=== PATIENT | female | born 1955 | race Caucasian/White ===

== ENCOUNTER 2019-08-06 10:57 | Inpatient (IN) | payer MEDICAID ==
[~2019-08-06] VITALS: Ht 157.5 cm; Wt 83.9 kg
[2019-08-06] MEDS ORDERED: ACETAMINOPHEN 325MG TABLET ONE (11:30)
[2019-08-06] MEDS ORDERED: SODIUM CHLORIDE 0.9% 1000ML BAG (SEPSIS BOLUS) IV ONE (12:15)
[2019-08-06 12:39] LABS: CLARITY URINE CLOUDY (CLEAR); COLOR URINE DARK YELLOW (YELLOW); KETONES URINE NEGATIVE (NEGATIVE); LEUKOCYTE ESTERASE URINE 2+ (NEGATIVE); NITRITE URINE POSITIVE (NEGATIVE); OCCULT BLOOD URINE 2+ (NEGATIVE); PROTEIN URINE 1+ (NEGATIVE); SPECIFIC GRAVITY URINE 1.028 (1.005-1.030)
[2019-08-06 12:44] LABS: BASOPHILS % 0.6 % (0.0-2.0); EOSINOPHILS % 0.4 % (0.0-5.0); HEMATOCRIT. 35.5 % (36.0-48.0); HEMOGLOBIN. 12.1 g/dL (12.0-16.0); LYMPHOCYTES % 13.3 % (20.0-50.0); MEAN CORPUSCULAR HEMOGLOBIN 32.8 pg (28.0-32.0); MEAN CORPUSCULAR VOLUME 96.2 fL (81.0-99.0); MEAN PLATELET VOLUME 8.7 fl (7.4-10.4); MONOCYTES % 5.8 % (2.0-8.0); NEUTROPHILS % 79.9 % (40.0-76.0); PLATELET 252 x1000/uL (130-400); RED BLOOD CELL COUNT 3.69 mill/uL (4.2-5.4); RED CELL DISTRIBUTION WIDTH 13.5 % (11.6-14.6)
[2019-08-06] MEDS ORDERED: KETOROLAC 15MG/ML VIAL IV ONE (12:45)
[2019-08-06 12:52] LABS: PROTHROMBIN TIME 10.2 sec (9.6-11.0)
[2019-08-06 12:53] LABS: CHLORIDE 100 mEq/L (98-107)
[2019-08-06] MEDS ORDERED: CEFTRIAXONE 1 G PREMIX 50 ML IV NR (15:00)
[2019-08-06] MEDS ORDERED: CLONIDINE 0.1MG TABLET PO PRN (18:15)
[2019-08-06] MEDS ORDERED: ONDANSETRON HCL 4MG/2ML INJ IV PRN (18:15)
[2019-08-06] MEDS ORDERED: IPRATROPIUM/ALBUTEROL 0.5-3(2.5)MG/3ML NEB NEB PRN (18:15)
[2019-08-06] MEDS ORDERED: DOCUSATE SODIUM 100MG CAPSULE PO PRN (18:15)
[2019-08-06 22:00] VITALS: BP 116/63
[2019-08-06] MEDS ORDERED: ATOR-2 PO (23:17)
[2019-08-06] MEDS ORDERED: PIOG45TA5 PO (23:17)
[2019-08-06] MEDS ORDERED: METF-416 PO (23:17)
[2019-08-06] MEDS ORDERED: ASPI325T85 MT (23:17)
[2019-08-06] MEDS ORDERED: IBUP-2029 PO (23:17)
[2019-08-06] MEDS ORDERED: RANI150T7 PO (23:17)
[2019-08-06] MEDS: ENOXAPARIN 40MG/0.4ML SYR SUBCUT SCH (23:42)
[2019-08-07] VITALS: BP 100/50
[2019-08-07] MEDS ORDERED: DEXTROSE 50% WATER 50ML SYRINGE IV PRN
[2019-08-07 00:43] LABS: CREATINE KINASE 96 IU/L (26-192)
[2019-08-07 00:44] LABS: CREATINE KINASE MB FRACTION < 1.0 ng/mL (0.5-3.6)
[2019-08-07] MEDS: ACETAMINOPHEN 325MG TABLET PO PRN (00:47)
[2019-08-07 04:00] VITALS: BP 104/53
[2019-08-07] MEDS: BLOOD SUGAR DIAGNOSTIC STRIP TEST SCH ×4 (06:51→21:40)
[2019-08-07] MEDS: INSULIN LISPRO 100 UNITS/ML SUBCUT SCH ×4 (07:32→21:41)
[2019-08-07 07:46] LABS: BASOPHILS % 0.8 % (0.0-2.0); EOSINOPHILS % 2.9 % (0.0-5.0); HEMATOCRIT. 30.2 % (36.0-48.0); HEMOGLOBIN. 10.4 g/dL (12.0-16.0); LYMPHOCYTES % 21.6 % (20.0-50.0); MEAN CORPUSCULAR HEMOGLOBIN 33.3 pg (28.0-32.0); MEAN CORPUSCULAR VOLUME 96.5 fL (81.0-99.0); MEAN PLATELET VOLUME 9.3 fl (7.4-10.4); MONOCYTES % 6.6 % (2.0-8.0); NEUTROPHILS % 68.1 % (40.0-76.0); PLATELET 229 x1000/uL (130-400); RED BLOOD CELL COUNT 3.13 mill/uL (4.2-5.4); RED CELL DISTRIBUTION WIDTH 13.3 % (11.6-14.6)
[2019-08-07 07:55] LABS: CHLORIDE 109 mEq/L (98-107)
[2019-08-07 08:00] VITALS: BP 107/53
[2019-08-07 08:13] LABS: LDL CHOLESTEROL 88 mg/dL (5-100)
[2019-08-07 08:14] LABS: CREATINE KINASE 76 IU/L (26-192)
[2019-08-07 08:15] LABS: HDL CHOLESTEROL 45 mg/dL (40-59)
[2019-08-07 08:18] LABS: CREATINE KINASE MB FRACTION < 1.0 ng/mL (0.5-3.6)
[2019-08-07 12:00] VITALS: BP 109/53
[2019-08-07] MEDS: GABAPENTIN 100MG CAPSULE PO SCH ×2 (15:24→21:41)
[2019-08-07] MEDS: KETOROLAC 30MG/ML VIAL IV SCH ×2 (15:31→21:40)
[2019-08-07 16:00] VITALS: BP 125/57
[2019-08-07] MEDS ORDERED: CEFTRIAXONE 1 G PREMIX 50 ML IV SCH (16:00)
[2019-08-07] MEDS: CEFTRIAXONE 1 G PREMIX 50 ML IV SCH (17:00)
[2019-08-07 20:00] VITALS: BP 110/44
[2019-08-07] MEDS: FAMOTIDINE 20MG/2ML VIAL IV SCH (21:40)
[2019-08-07] MEDS: ENOXAPARIN 40MG/0.4ML SYR SUBCUT SCH (21:40)
[2019-08-08] VITALS: BP 127/65
[2019-08-08 04:00] VITALS: BP 120/54
[2019-08-08] MEDS: KETOROLAC 30MG/ML VIAL IV SCH ×3 (05:48→21:28)
[2019-08-08] MEDS: GABAPENTIN 100MG CAPSULE PO SCH ×3 (05:48→21:28)
[2019-08-08] MEDS: BLOOD SUGAR DIAGNOSTIC STRIP TEST SCH ×4 (06:24→21:28)
[2019-08-08 07:32] LABS: CHLORIDE 109 mEq/L (98-107)
[2019-08-08 07:53] LABS: BASOPHILS % 0.8 % (0.0-2.0); EOSINOPHILS % 3.2 % (0.0-5.0); HEMATOCRIT. 31.5 % (36.0-48.0); HEMOGLOBIN. 10.9 g/dL (12.0-16.0); MEAN CORPUSCULAR HEMOGLOBIN 33.4 pg (28.0-32.0); MEAN CORPUSCULAR VOLUME 96.3 fL (81.0-99.0); MEAN PLATELET VOLUME 9.2 fl (7.4-10.4); MONOCYTES % 5.5 % (2.0-8.0); NEUTROPHILS % 74.5 % (40.0-76.0); PLATELET 293 x1000/uL (130-400); RED BLOOD CELL COUNT 3.27 mill/uL (4.2-5.4); RED CELL DISTRIBUTION WIDTH 13.4 % (11.6-14.6)
[2019-08-08] MEDS: INSULIN LISPRO 100 UNITS/ML SUBCUT SCH ×4 (08:14→21:55)
[2019-08-08 08:35] VITALS: BP_SYST 111; BP_SYST 147; BP_DIAS 66; BP_DIAS 68
[2019-08-08] MEDS: FAMOTIDINE 20MG/2ML VIAL IV SCH ×2 (09:33→21:28)
[2019-08-08 12:00] VITALS: BP 135/51
[2019-08-08] MEDS: CEFTRIAXONE 1 G PREMIX 50 ML IV SCH (15:45)
[2019-08-08 16:04] VITALS: BP 138/68
[2019-08-08] MEDS: ACETAMINOPHEN 325MG TABLET PO PRN (16:20)
[2019-08-08 20:00] VITALS: BP 135/58
[2019-08-08] MEDS: ENOXAPARIN 40MG/0.4ML SYR SUBCUT SCH (21:27)
[2019-08-09] VITALS: BP 135/88
[2019-08-09 01:03] LABS: CHLORIDE 107 mEq/L (98-107)
[2019-08-09] MEDS: DEXT 5%/0.45% NACL KCL 20MEQ/L 1,000 ML IV SCH ×3 (01:37→21:06)
[2019-08-09 04:00] VITALS: BP 132/51
[2019-08-09] MEDS: ACETAMINOPHEN 325MG TABLET PO PRN (04:59)
[2019-08-09] MEDS: GABAPENTIN 100MG CAPSULE PO SCH ×3 (05:31→21:02)
[2019-08-09] MEDS: KETOROLAC 30MG/ML VIAL IV SCH ×3 (05:50→21:05)
[2019-08-09] MEDS: BLOOD SUGAR DIAGNOSTIC STRIP TEST SCH ×4 (06:53→21:05)
[2019-08-09 07:59] LABS: BASOPHILS % 0.4 % (0.0-2.0); EOSINOPHILS % 0.7 % (0.0-5.0); HEMATOCRIT. 29.6 % (36.0-48.0); HEMOGLOBIN. 10.2 g/dL (12.0-16.0); LYMPHOCYTES % 10.7 % (20.0-50.0); MEAN CORPUSCULAR HEMOGLOBIN 32.9 pg (28.0-32.0); MEAN CORPUSCULAR VOLUME 95.7 fL (81.0-99.0); MEAN PLATELET VOLUME 9.1 fl (7.4-10.4); MONOCYTES % 6.7 % (2.0-8.0); NEUTROPHILS % 81.5 % (40.0-76.0); PLATELET 310 x1000/uL (130-400); RED BLOOD CELL COUNT 3.09 mill/uL (4.2-5.4); RED CELL DISTRIBUTION WIDTH 13.5 % (11.6-14.6)
[2019-08-09 08:00] VITALS: BP 130/70
[2019-08-09 08:07] LABS: CHLORIDE 104 mEq/L (98-107)
[2019-08-09] MEDS: FAMOTIDINE 20MG/2ML VIAL IV SCH ×2 (08:27→21:05)
[2019-08-09] MEDS: INSULIN LISPRO 100 UNITS/ML SUBCUT SCH ×4 (08:36→21:38)
[2019-08-09] MEDS ORDERED: CEFTRIAXONE 2 G PREMIX 50 ML IV SCH (09:15)
[2019-08-09] MEDS: CEFTRIAXONE 2 G in DEXTROSE 5% WATER 50 ML IV SCH (11:09)
[2019-08-09 12:00] VITALS: BP 126/60
[2019-08-09] MEDS: METRONIDAZOLE 500 MG PREMIX 100 ML IV SCH ×2 (12:05→20:21)
[2019-08-09] MEDS ORDERED: NORMAL SALINE 0.9% 10 ML SYR ONE (13:53)
[2019-08-09] MEDS ORDERED: BACITRACIN 50,000 UNITS/VIAL ONE (13:53)
[2019-08-09] MEDS ORDERED: BUPIVACAINE HCL/PF 0.5% (5MG/ML) 10ML ONE (13:53)
[2019-08-09] MEDS ORDERED: LIDOCAINE HCL 1% 20ML VIAL (Pyxis) INJ ONE (13:53)
[2019-08-09] MEDS ORDERED: SKIN ADHESIVE 0.7 GM EA TOP ONE (13:53)
[2019-08-09] MEDS ORDERED: PROPOFOL 200MG/20ML VIAL IV ONE ×2 (14:58→17:53)
[2019-08-09] MEDS ORDERED: MIDAZOLAM HCL 2 MG/2 ML VIAL ONE (14:58)
[2019-08-09] MEDS ORDERED: FENTANYL CITRATE/PF 50MCG/ML 2ML VIAL ONE (14:58)
[2019-08-09] MEDS ORDERED: GLYCOPYRROLATE 0.2 MG/ML 2ML VIAL ONE (14:58)
[2019-08-09] MEDS ORDERED: NEOSTIGMINE METHYLSULFATE 1MG/ML 10 ML VIAL ONE (14:58)
[2019-08-09] MEDS ORDERED: METOCLOPRAMIDE HCL 10MG/2ML VIAL ONE (14:59)
[2019-08-09] MEDS ORDERED: CEFAZOLIN SODIUM 1000MG/VIAL ONE (14:59)
[2019-08-09] MEDS ORDERED: LIDOCAINE HCL/PF 1% 10 MG/ML 5ML VIAL ONE (14:59)
[2019-08-09] MEDS ORDERED: ONDANSETRON HCL 4MG/2ML INJ ONE (14:59)
[2019-08-09] MEDS ORDERED: ROCURONIUM BROMIDE 10MG/ML VIAL 5ML IV ONE (15:11)
[2019-08-09] MEDS ORDERED: KETOROLAC 30MG/ML VIAL ONE (17:42)
[2019-08-09] MEDS ORDERED: HYDROMORPHONE HCL/PF 2MG/ML CPJ IV PRN (18:15)
[2019-08-09] MEDS ORDERED: DIPHENHYDRAMINE 50MG/ML VIAL IV PRN (18:15)
[2019-08-09] MEDS ORDERED: MEPERIDINE HCL/PF 25MG/ML CPJ IV PRN (18:15)
[2019-08-09 20:00] VITALS: BP 140/64
[2019-08-09] MEDS: ENOXAPARIN 40MG/0.4ML SYR SUBCUT SCH (21:05)
[2019-08-10] VITALS: BP 105/52
[2019-08-10] MEDS: METRONIDAZOLE 500 MG PREMIX 100 ML IV SCH ×3 (03:50→20:20)
[2019-08-10 04:00] VITALS: BP 122/63
[2019-08-10] MEDS: ACETAMINOPHEN 325MG TABLET PO PRN (04:03)
[2019-08-10] MEDS: KETOROLAC 30MG/ML VIAL IV SCH ×3 (05:11→21:04)
[2019-08-10] MEDS: GABAPENTIN 100MG CAPSULE PO SCH ×3 (05:11→21:03)
[2019-08-10] MEDS: BLOOD SUGAR DIAGNOSTIC STRIP TEST SCH ×4 (06:44→21:04)
[2019-08-10 06:45] LABS: BASOPHILS % 0.4 % (0.0-2.0); EOSINOPHILS % 0.3 % (0.0-5.0); HEMATOCRIT. 27.2 % (36.0-48.0); HEMOGLOBIN. 9.1 g/dL (12.0-16.0); LYMPHOCYTES % 10.9 % (20.0-50.0); MEAN CORPUSCULAR HEMOGLOBIN 32.5 pg (28.0-32.0); MEAN CORPUSCULAR VOLUME 96.7 fL (81.0-99.0); MEAN PLATELET VOLUME 8.7 fl (7.4-10.4); MONOCYTES % 5.8 % (2.0-8.0); NEUTROPHILS % 82.6 % (40.0-76.0); PLATELET 264 x1000/uL (130-400); RED BLOOD CELL COUNT 2.81 mill/uL (4.2-5.4); RED CELL DISTRIBUTION WIDTH 13.2 % (11.6-14.6)
[2019-08-10] MEDS: DEXT 5%/0.45% NACL KCL 20MEQ/L 1,000 ML IV SCH ×2 (06:47→17:38)
[2019-08-10 06:51] LABS: CHLORIDE 108 mEq/L (98-107)
[2019-08-10 08:15] VITALS: BP 103/53
[2019-08-10] MEDS: FAMOTIDINE 20MG/2ML VIAL IV SCH ×2 (08:27→21:03)
[2019-08-10] MEDS: INSULIN LISPRO 100 UNITS/ML SUBCUT SCH ×4 (08:29→21:16)
[2019-08-10] MEDS: CEFTRIAXONE 2 G in DEXTROSE 5% WATER 50 ML IV SCH (10:58)
[2019-08-10 12:29] VITALS: BP 106/50
[2019-08-10 16:44] VITALS: BP 102/58
[2019-08-10 20:00] VITALS: BP 115/58
[2019-08-10] MEDS: ENOXAPARIN 40MG/0.4ML SYR SUBCUT SCH (21:02)
[2019-08-11] VITALS: BP 103/52
[2019-08-11] MEDS: DEXT 5%/0.45% NACL KCL 20MEQ/L 1,000 ML IV SCH ×2 (02:39→14:10)
[2019-08-11] MEDS: ACETAMINOPHEN 325MG TABLET PO PRN (02:39)
[2019-08-11 04:00] VITALS: BP 108/63
[2019-08-11] MEDS: METRONIDAZOLE 500 MG PREMIX 100 ML IV SCH ×3 (04:29→20:08)
[2019-08-11] MEDS: GABAPENTIN 100MG CAPSULE PO SCH ×3 (05:00→22:06)
[2019-08-11] MEDS: KETOROLAC 30MG/ML VIAL IV SCH ×3 (05:00→22:13)
[2019-08-11] MEDS: BLOOD SUGAR DIAGNOSTIC STRIP TEST SCH ×4 (06:33→20:38)
[2019-08-11 06:57] LABS: BASOPHILS % 0.7 % (0.0-2.0); EOSINOPHILS % 3.7 % (0.0-5.0); HEMATOCRIT. 26.4 % (36.0-48.0); LYMPHOCYTES % 15.1 % (20.0-50.0); MEAN CORPUSCULAR HEMOGLOBIN 32.7 pg (28.0-32.0); MEAN CORPUSCULAR VOLUME 96.3 fL (81.0-99.0); MEAN PLATELET VOLUME 8.9 fl (7.4-10.4); MONOCYTES % 6.6 % (2.0-8.0); NEUTROPHILS % 73.9 % (40.0-76.0); PLATELET 272 x1000/uL (130-400); RED BLOOD CELL COUNT 2.74 mill/uL (4.2-5.4); RED CELL DISTRIBUTION WIDTH 13.3 % (11.6-14.6)
[2019-08-11 07:50] LABS: CHLORIDE 109 mEq/L (98-107)
[2019-08-11 07:59] LABS: PHOSPHORUS 2.1 mg/dL (2.5-4.9)
[2019-08-11 08:00] VITALS: BP 89/45
[2019-08-11] MEDS: FAMOTIDINE 20MG/2ML VIAL IV SCH ×2 (09:25→21:03)
[2019-08-11] MEDS: INSULIN LISPRO 100 UNITS/ML SUBCUT SCH ×4 (09:34→22:02)
[2019-08-11] MEDS: CEFTRIAXONE 2 G in DEXTROSE 5% WATER 50 ML IV SCH (11:36)
[2019-08-11 12:00] VITALS: BP 114/60
[2019-08-11] MEDS ORDERED: POTASSIUM PHOS,M-BASIC-D-BASIC 20 MMOL in DEXT 5% WATER 243.3333 ML IV NR (16:00)
[2019-08-11] MEDS: ENOXAPARIN 40MG/0.4ML SYR SUBCUT SCH (22:05)
[2019-08-12] MEDS: METRONIDAZOLE 500 MG PREMIX 100 ML IV SCH ×2 (04:04→12:00)
[2019-08-12] MEDS: KETOROLAC 30MG/ML VIAL IV SCH ×2 (06:21→13:10)
[2019-08-12] MEDS: GABAPENTIN 100MG CAPSULE PO SCH ×2 (06:22→13:09)
[2019-08-12] MEDS: BLOOD SUGAR DIAGNOSTIC STRIP TEST SCH ×3 (07:19→17:20)
[2019-08-12 07:24] LABS: BASOPHILS % 0.6 % (0.0-2.0); EOSINOPHILS % 4.8 % (0.0-5.0); HEMATOCRIT. 28.3 % (36.0-48.0); HEMOGLOBIN. 9.7 g/dL (12.0-16.0); LYMPHOCYTES % 19.1 % (20.0-50.0); MEAN CORPUSCULAR HEMOGLOBIN 32.8 pg (28.0-32.0); MEAN CORPUSCULAR VOLUME 96.3 fL (81.0-99.0); MEAN PLATELET VOLUME 8.6 fl (7.4-10.4); MONOCYTES % 5.7 % (2.0-8.0); NEUTROPHILS % 69.8 % (40.0-76.0); PLATELET 372 x1000/uL (130-400); RED BLOOD CELL COUNT 2.94 mill/uL (4.2-5.4); RED CELL DISTRIBUTION WIDTH 13.6 % (11.6-14.6)
[2019-08-12 08:08] LABS: CHLORIDE 109 mEq/L (98-107)
[2019-08-12 08:10] VITALS: BP 99/55
[2019-08-12 08:15] LABS: PHOSPHORUS 2.8 mg/dL (2.5-4.9)
[2019-08-12] MEDS: FAMOTIDINE 20MG/2ML VIAL IV SCH (08:45)
[2019-08-12] MEDS: INSULIN LISPRO 100 UNITS/ML SUBCUT SCH ×3 (08:56→18:26)
[2019-08-12] MEDS: CEFTRIAXONE 2 G in DEXTROSE 5% WATER 50 ML IV SCH (11:15)
[2019-08-12 12:08] VITALS: BP 137/59
[2019-08-12 16:02] VITALS: BP 125/59
[2019-08-12 16:41] VITALS: BP 125/59
[2019-08-13] MEDS ORDERED: METRONIDAZOLE 500MG TABLET PO SCH (06:00)
== END 2019-08-12 18:30 | disposition home or self-care (01) | DRG 710 ==
LOC: ER 10:57 → 6WST 15:04 → EDBEDREQSVC 15:10 → EDBEDREQ 15:10 → ENRESERV 20:56
PROVIDERS: ADMIT Internal Medicine; ATTEND Internal Medicine
PROC: 0FT44ZZ Resection of Gallbladder, Percutaneous Endoscopic Approach (ICD-10-PCS; principal; 2019-08-09)
DX: A41.9 Sepsis, unspecified organism (principal); E11.40 Type 2 diabetes mellitus with diabetic neuropathy, unspecified; K80.01 Calculus of gallbladder with acute cholecystitis with obstruction; D64.9 Anemia, unspecified; E78.5 Hyperlipidemia, unspecified; M72.2 Plantar fascial fibromatosis; M19.071 Primary osteoarthritis, right ankle and foot; E87.6 Hypokalemia; B96.89 Other specified bacterial agents as the cause of diseases classified elsewhere; K57.90 Diverticulosis of intestine, part unspecified, without perforation or abscess without bleeding; N39.0 Urinary tract infection, site not specified; I10 Essential (primary) hypertension; M79.671 Pain in right foot; K57.30 Diverticulosis of large intestine without perforation or abscess without bleeding; Z83.3 Family history of diabetes mellitus; Z82.49 Family history of ischemic heart disease and other diseases of the circulatory system
CPT/HCPCS: 36415; 71045; 73630; 74176; 76705; 78227; 80048; 80053; 80061; 81003; 82270; 82550; 82553; 82962; 83036; 83605; 83735; 83880; 84100; 84145; 84484; 85025; 87015; 87045; 87070; 87075; 87077; 87186; 87427; 88304; 89055; 93005; 93970; 99291; A9537; J0690; J0696; J1650; J1815; J1885; J2250; J2405; J2704; J2710; J2765; J3010; J3490; J7030; J7060

== ENCOUNTER 2021-04-17 13:25 | Emergency (ER) | payer MEDICAID ==
[~2021-04-17] VITALS: Ht 157.5 cm; Wt 78.0 kg
[~2021-04-17 13:25] MED LIST: ASPI-867 MT; ATOR-2 PO; IBUP-2029 PO; METF-416 PO; PIOG45TA5 PO; RANI150T7 PO
[2021-04-17] MEDS ORDERED: IBUPROFEN 600MG TABLET PO STA (17:34)
[2021-04-17 18:35] VITALS: BP 151/82
[2021-04-17] MEDS ORDERED: TRAM50TA MT (18:59)
[2021-04-17] MEDS ORDERED: NAPR-681 PO (18:59)
== END 2021-04-17 19:08 | disposition home or self-care (01) ==
LOC: ER 13:25
DX: S83.92XA Sprain of unspecified site of left knee, initial encounter (principal); M25.562 Pain in left knee; E11.9 Type 2 diabetes mellitus without complications; E78.00 Pure hypercholesterolemia, unspecified; I10 Essential (primary) hypertension; X50.3XXA Overexertion from repetitive movements, initial encounter; Y93.01 Activity, walking, marching and hiking; Y92.9 Unspecified place or not applicable; Z79.82 Long term (current) use of aspirin
CPT/HCPCS: 73562; 99283